=== PATIENT | female | born 1950 | race Caucasian/White ===

== ENCOUNTER → 2017-04-25 | Outpatient (CLI) | payer MEDICARE, BC ==
--- NOTE | 2017-04-30 08:18 | MM ---
Reason for exam: screening (asymptomatic). Last mammogram was performed 1 year and 1 month ago. History: Patient is postmenopausal and is nulliparous. Taking estrogen for 23 years 2 months beginning at age 40. Physical Findings: A clinical breast exam by your physician is recommended on an annual basis and results should be correlated with mammographic findings. MG Screening Mammo w CAD Bilateral CC and MLO view(s) were taken. Prior study comparison: March 10, 2016, bilateral MG screening mammo w CAD. February 25, 2015, bilateral MG screening mammo w CAD. February 16, 2014, bilateral MG screening mammo w CAD. The breast tissue is heterogeneously dense. This may lower the sensitivity of mammography. There is chronic nodularity in the upper outer quadrants bilaterally. No significant changes when compared with prior studies. ASSESSMENT: Negative, BI-RAD 1 RECOMMENDATION: Routine screening mammogram of both breasts in 1 year.
== END | disposition home or self-care (01) ==
LOC: RADMAMWWP 14:02
PROVIDERS: ATTEND Family Medicine
DX: Z12.31 Encounter for screening mammogram for malignant neoplasm of breast (principal)

== ENCOUNTER → 2018-05-21 | Outpatient (CLI) | payer MEDICARE, BC ==
--- NOTE | 2018-05-21 13:07 | MM ---
Reason for exam: screening (asymptomatic). Last mammogram was performed 1 year and 1 month ago. History: Patient is postmenopausal and is nulliparous. Taking estrogen for 23 years 2 months beginning at age 40. Physical Findings: A clinical breast exam by your physician is recommended on an annual basis and results should be correlated with mammographic findings. MG Screening Mammo w CAD Bilateral CC and MLO view(s) were taken. Prior study comparison: April 25, 2017, bilateral MG screening mammo w CAD. March 10, 2016, bilateral MG screening mammo w CAD. The breast tissue is heterogeneously dense. This may lower the sensitivity of mammography. No suspicious abnormality. No significant changes when compared with prior studies. ASSESSMENT: Negative, BI-RAD 1 RECOMMENDATION: Routine screening mammogram of both breasts in 1 year.
== END ==
LOC: RADMAMWWP 10:00
PROVIDERS: ATTEND Family Medicine
DX: Z12.31 Encounter for screening mammogram for malignant neoplasm of breast (principal)
CPT/HCPCS: 77067

== ENCOUNTER → 2018-08-21 | Outpatient (CLI) | payer MEDICARE, BC ==
--- NOTE | 2018-08-21 10:39 | BD ---
EXAMINATION TYPE: Axial Bone Density DATE OF EXAM: 08/21/2018 COMPARISON: NONE CLINICAL HISTORY: Height: 60 Weight: 128.7 FRAX RISK QUESTIONS: Alcohol (3 or more units per day): no Family History (Parent hip fracture): no Glucocorticoids (More than 3mos): no (Ex: prednisone, prednisolone, methylprednisolone, dexamethasone, and hydrocortisone). History of Fracture in Adulthood: no Secondary Osteoporosis: 1. Type 1 Diabetes: no 2. Hyperthyroidism: no 3. Menopause before 45: no 4. Malnutrition: no 5. Chronic liver disease: no Rheumatoid Arthritis: no Current Tobacco Use: no RISK FACTORS HISTORY OF: Family History of Osteoporosis: no Active: yes Diet low in dairy products/other sources of calcium: yes Postmenopausal woman: age 43 Take estrogen and/or progesterone medications: yes How lon years Lost more than 2 inches in height since high school: yes MEDICATIONS: estradiol, vitamins Additional History: priors at drs office EXAM MEASUREMENTS: Bone mineral densitometry was performed using the [employer] System. Bone mineral density as measured about the Lumbar spine is: ----- L1-L4(G/cm2): 1.132 T Score Values are as follows: ----- L2: 0.0 ----- L3: 0.0 ----- L4: -0.3 ----- L1-L4: -0.4 Bone mineral density : baseline here Bone mineral density about the R hip (g/cm2): 0.720 Bone mineral density about the L hip (g/cm2): 0.777 T Score values are as follows: -----R Neck: -2.3 -----L Neck: -1.9 -----R Total: -1.8 -----L Total: -1.8 Bone mineral density : baseline here IMPRESSION: Osteopenia bilateral femora. NOTE: T-SCORE=SD OF THE YOUNG ADULT MEAN.
== END ==
LOC: RADBDWWP 08:23
PROVIDERS: ATTEND Family Medicine
DX: M85.851 Other specified disorders of bone density and structure, right thigh (principal); M85.852 Other specified disorders of bone density and structure, left thigh
CPT/HCPCS: 77080

== ENCOUNTER → 2019-07-03 | Outpatient (CLI) | payer MEDICARE, BC ==
--- NOTE | 2019-07-04 13:56 | MM ---
Reason for exam: screening (asymptomatic). Last mammogram was performed 1 year and 1 month ago. History: Patient is postmenopausal and is nulliparous. Taking estrogen for 23 years 2 months beginning at age 40. Physical Findings: A clinical breast exam by your physician is recommended on an annual basis and results should be correlated with mammographic findings. MG Screening Mammo w CAD Bilateral CC and MLO view(s) were taken. Prior study comparison: May 21, 2018, bilateral MG screening mammo w CAD. April 25, 2017, bilateral MG screening mammo w CAD. The breast tissue is heterogeneously dense. This may lower the sensitivity of mammography. There is no discrete abnormality. No significant changes when compared with prior studies. ASSESSMENT: Negative, BI-RAD 1 RECOMMENDATION: Routine screening mammogram of both breasts in 1 year.
== END | disposition home or self-care (01) ==
LOC: RADMAMWWP 12:49
PROVIDERS: ATTEND Family Medicine
DX: Z12.31 Encounter for screening mammogram for malignant neoplasm of breast (principal)
CPT/HCPCS: 77067

== ENCOUNTER → 2020-08-04 | Outpatient (CLI) | payer MEDICARE, BC ==
--- NOTE | 2020-08-06 11:48 | MM ---
Reason for exam: screening (asymptomatic). Last mammogram was performed 1 year and 1 month ago. History: Patient is postmenopausal and is nulliparous. Taking estrogen for 24 years 2 months beginning at age 40. Physical Findings: A clinical breast exam by your physician is recommended on an annual basis and results should be correlated with mammographic findings. MG Screening Mammo w CAD Bilateral CC and MLO view(s) were taken. Prior study comparison: July 03, 2019, bilateral MG screening mammo w CAD. May 21, 2018, bilateral MG screening mammo w CAD. The breast tissue is heterogeneously dense. This may lower the sensitivity of mammography. Stable asymmetric densities posterior lateral right CC view. No significant changes when compared with prior studies. ASSESSMENT: Negative, BI-RAD 1 RECOMMENDATION: Routine screening mammogram of both breasts in 1 year.
== END ==
LOC: RADMAMWWP 10:13
PROVIDERS: ATTEND Family Medicine
DX: Z12.31 Encounter for screening mammogram for malignant neoplasm of breast (principal); Z78.0 Asymptomatic menopausal state
CPT/HCPCS: 77067

== ENCOUNTER → 2021-11-16 | Outpatient (CLI) | payer MEDICARE, BC ==
--- NOTE | 2021-11-17 16:36 | BD ---
EXAMINATION TYPE: Axial Bone Density DATE OF EXAM: 11/16/2021 COMPARISON: 08-21-2018 CLINICAL HISTORY: 71 years year old Female. ICD-10 CODE: M85.80 OTHER SPECIFIED DISORDER OF BONE DEN SITY Height: 58IN Weight: 125 FRAX RISK QUESTIONS: Secondary Osteoporosis: RISK FACTORS HISTORY OF: Postmenopausal woman: YES 53 Take estrogen and/or progesterone medications: YES 2 YEARS MEDICATIONS: Additional Medications: CALCIUM, VITAMIN D, ESTRADIAL EXAM MEASUREMENTS: Bone mineral densitometry was performed using the [employer] System. Bone mineral density as measured about the Lumbar spine is: ----- L1-L4(G/cm2): 1.057 T Score Values are as follows: ----- L1: -2.5 ----- L2: -2.2 ----- L3: 0.3 ----- L4: -0.4 ----- L1-L4: -1.0 Bone mineral density has: Decreased -5.4% since study of: 08.21.2018 Bone mineral density about the R hip (g/cm2): 0.750 Bone mineral density about the L hip (g/cm2): 0.815 T Score values are as follows: -----R Neck: -2.5 -----L Neck: -2.1 -----R Total: -2.0 -----L Total: -1.5 Bone mineral density has: Increased 0.1% since study of: 08.21.2018 FRAX%s: The graph provided illustrates a 16.2% chance for a major osteoporotic fx and a 4.8% chance f or the hips probability for fx in 10 years time. IMPRESSION: Osteoporosis (T Score less than -2.5). There is increased fracture risk and therapy is usually indicated based on age. Re-Screen 1-2 years. NOTE: T-SCORE=SD OF THE YOUNG ADULT MEAN.
--- NOTE | 2021-11-18 07:38 | MM ---
Reason for Exam: Screening (asymptomatic). Last mammogram was performed 1 year(s) and 3 month(s) ago. Patient History: Menarche at age 10. Patient has no children. Left ovary removed at age 40. Right ovary removed at age 40. Hysterectomy at age 40. Postmenopausal. Currently using Estrogen, beginning at age 40 for 24 years, 2 months. Risk Values: Asha 5 year model risk: 2.0%. NCI Lifetime model risk: 4.8%. Prior Study Comparison: 05/21/2018 Bilateral Screening Mammogram, [facility]. 07/03/2019 Bilateral Screening Mammogram, [facility]. 08/04/2020 Bilateral Screening Mammogram, [facility]. Tissue Density: The breast tissue is heterogeneously dense. This may lower the sensitivity of mammography. Findings: Analyzed By CAD. There is no suspicious group of microcalcifications or new suspicious mass in either breast. Overall Assessment: Negative, BI-RAD 1 Management: Screening Mammogram of both breasts in 1 year. A clinical breast exam by your physician is recommended on an annual basis and results should be correlated with mammographic findings. Electronically signed and approved by: Alonso Najera M.D. Radiologis
== END | disposition home or self-care (01) ==
LOC: RADMAMWWP 14:30
PROVIDERS: ATTEND Family Medicine
DX: Z12.31 Encounter for screening mammogram for malignant neoplasm of breast (principal); M81.0 Age-related osteoporosis without current pathological fracture; Z78.0 Asymptomatic menopausal state
CPT/HCPCS: 77067; 77080

== ENCOUNTER → 2022-12-13 | Outpatient (CLI) | payer MEDICARE, BC ==
--- NOTE | 2022-12-14 08:48 | MM ---
Reason for Exam: Screening (asymptomatic). Last mammogram was performed 1 year(s) and 1 month(s) ago. Patient History: Menarche at age 10. Patient has no children. Left ovary removed at age 40. Right ovary removed at age 40. Hysterectomy at age 40. Postmenopausal. Currently using Estrogen, beginning at age 40 for 24 years, 2 months. Risk Values: Asha 5 year model risk: 2.0%. NCI Lifetime model risk: 4.5%. Prior Study Comparison: 07/03/2019 Bilateral Screening Mammogram, [facility]. 08/04/2020 Bilateral Screening Mammogram, [facility]. 11/16/2021 Bilateral MG screening mammo w CAD, [facility]. Tissue Density: The breast tissue is heterogeneously dense. This may lower the sensitivity of mammography. Findings: Analyzed By CAD. There is no suspicious group of microcalcifications or new suspicious mass in either breast. Overall Assessment: Benign, BI-RAD 2 Management: Screening Mammogram of both breasts in 1 year. . Patient should continue monthly self-breast exams. A clinical breast exam by your physician is recommended on an annual basis. This exam should not preclude additional follow-up of suspicious palpable abnormalities. Note on Asha scores and lifetime risk: 1. A Asha score greater than 3% is considered moderate risk. If this is the case, consider specialist referral to assess eligibility for a risk reducing agent. 2. If overall lifetime risk for the development of breast cancer is 20% or higher, the patient may qualify for future screening with alternating mammogram and breast MRI. Electronically signed and approved by: Alonso Najera M.D. Radiologis
== END | disposition home or self-care (01) ==
LOC: RADMAMWWP 07:43
PROVIDERS: ATTEND Family Medicine
DX: Z12.31 Encounter for screening mammogram for malignant neoplasm of breast (principal); Z78.0 Asymptomatic menopausal state
CPT/HCPCS: 77067

== ENCOUNTER → 2024-02-20 | Outpatient (CLI) | payer MEDICARE, BC ==
--- NOTE | 2024-02-27 07:42 | MM ---
Reason for Exam: Screening (asymptomatic). Last mammogram was performed 1 year(s) and 2 month(s) ago. Patient History: Menarche at age 10. Patient has no children. Left ovary removed at age 40. Right ovary removed at age 40. Hysterectomy at age 40. Postmenopausal. Currently using Estrogen, beginning at age 40 for 24 years, 2 months. Risk Values: Asha 5 year model risk: 2.0%. NCI Lifetime model risk: 4.2%. Prior Study Comparison: 08/04/2020 Bilateral Screening Mammogram, [facility]. 11/16/2021 Bilateral MG screening mammo w CAD, [facility]. 12/13/2022 Bilateral MG screening mammo w CAD, [facility]. Tissue Density: The breasts are heterogeneously dense, which may obscure small masses. Findings: Analyzed By CAD. There is no suspicious group of microcalcifications or new suspicious mass in either breast. Benign calcifications. Overall Assessment: Benign, BI-RAD 2 Management: Screening Mammogram of both breasts in 1 year. . Patient should continue monthly self-breast exams. A clinical breast exam by your physician is recommended on an annual basis. This exam should not preclude additional follow-up of suspicious palpable abnormalities. Note on Asha scores and lifetime risk: 1. A Asha score greater than 3% is considered moderate risk. If this is the case, consider specialist referral to assess eligibility for a risk reducing agent. 2. If overall lifetime risk for the development of breast cancer is 20% or higher, the patient may qualify for future screening with alternating mammogram and breast MRI. [facility], , 02/27/2024 7:39 AM. Electronically signed and approved by: Charles Spencer M.D. Radiologis
== END | disposition home or self-care (01) ==
LOC: RADMAMWWP 09:42
PROVIDERS: ATTEND Family Medicine
DX: Z12.31 Encounter for screening mammogram for malignant neoplasm of breast
CPT/HCPCS: 77063; 77067

== ENCOUNTER → 2024-04-14 | Outpatient (CLI) | payer MEDICARE, BC ==
--- NOTE | 2024-04-20 22:55 | BD ---
EXAMINATION TYPE: Axial Bone Density DATE OF EXAM: 04/14/2024 CLINICAL HISTORY: 74 years old Female. ICD-10 CODE: M81.0 AGE RELATED OSTEO , Additional History: Height: 59.25 Weight: 126.7 FRAX RISK QUESTIONS: Alcohol (3 or more units per day): no Family History (Parent hip fracture): no Glucocorticoids (More than 3mos): no (Ex: prednisone, prednisolone, methylprednisolone, dexamethasone, and hydrocortisone). History of Fracture in Adulthood: no Secondary Osteoporosis: 1. Type 1 Diabetes: no 2. Hyperthyroidism: no 3. Menopause before 45: yes 4. Malnutrition: no 5. Chronic liver disease: no Rheumatoid Arthritis: no Current Tobacco Use: no RISK FACTORS HISTORY OF: Hip Fracture (Right/Left): no Spine Fracture: no History of Wrist Fracture: no When: no Surgery to Spine/Hip(right/left)/Wrist (right/left): no MEDICATIONS: Thyroid Medications: no Osteoporosis Medications: yes How Long: past 2 years EXAM MEASUREMENTS: Bone mineral densitometry was performed using the [employer] System. Bone mineral density as measured about the Lumbar spine is: ----- L1-L4(G/cm2): 1.138 T Score Values are as follows: ----- L1: -1.5 ----- L2: -0.9 ----- L3: 0.1 ----- L4: 0.7 ----- L1-L4: -0.3 Z Score Values are as follows: ----- L1: 0.5 ----- L2: 1.1 ----- L3: 2.2 ----- L4: 2.8 ----- L1-L4: 1.7 Bone mineral density has: increased 7.7 % since study of: 11/16/2021 Bone mineral density about the R hip (g/cm2): 0.781 Bone mineral density about the L hip (g/cm2): 0.790 T Score values are as follows: -----R Neck: -2.4 -----L Neck: -2.1 -----R Total: -1.8 -----L Total: -1.7 Z Score values are as follows: -----R Neck: -0.3 -----L Neck: 0.0 -----R Total: 0.2 -----L Total: 0.2 Bone mineral density has: increased 0.5 % since study of: 11/16/2021 FRAX%s: The graph provided illustrates a 17.1% chance for a major osteoporotic fx and a 5.4% chance f or the hips probability for fx in 10 years time. IMPRESSION: Osteopenia (T Score between -2.5 and -1). There is slightly increased risk of fracture and the patient may be considered for treatment. Re-Screen 2-5 years. NOTE: T-SCORE=SD OF THE YOUNG ADULT MEAN. [facility], , 04/20/2024 10:53 PM
== END | disposition home or self-care (01) ==
LOC: RADBDWWP 08:32
PROVIDERS: ATTEND Family Medicine
DX: M81.0 Age-related osteoporosis without current pathological fracture (principal); M85.89 Other specified disorders of bone density and structure, multiple sites
CPT/HCPCS: 77080